=== PATIENT | male | born 1975 | race Caucasian/White ===

== ENCOUNTER 2019-03-01 19:36 | Emergency (ER) | payer BC ==
[2019-03-01] MEDS ORDERED: OXYCODONE-ACETAMINOPHEN 5-325 MG TABLET PO ONE (20:59)
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
[2019-03-02 00:07] VITALS: BP 164/72
== END 2019-03-01 22:10 | disposition home or self-care (01) ==
LOC: ER 19:36
DX: S62.304A Unspecified fracture of fourth metacarpal bone, right hand, initial encounter for closed fracture (principal); S62.306A Unspecified fracture of fifth metacarpal bone, right hand, initial encounter for closed fracture; W22.8XXA Striking against or struck by other objects, initial encounter; G89.29 Other chronic pain; Z79.891 Long term (current) use of opiate analgesic; Z88.8 Allergy status to other drugs, medicaments and biological substances
CPT/HCPCS: 99283